=== PATIENT | female | born 1945 | race Two or more races ===

== ENCOUNTER 2018-12-16 17:10 | Inpatient (IN) | payer MEDICARE, MEDICAID ==
[~2018-12-16] VITALS: Ht 157.5 cm; Wt 51.8 kg
[~2018-12-16 17:10] MED LIST: AMLO10TA PO; ASPI81TA52 PO; ATOR80TA PO; CALC668T PO; DOCU100C41 PO; FA/V1TAB5 PO
[2018-12-16 17:57] LABS: EOSINOPHILS # (AUTO) 0.1 X10'3 (0-0.9); HEMOGLOBIN 9.5 g/dl (12.0-16.0); MEAN CORPUSCULAR HEMOGLOBIN 24.9 PG (27.0-31.0); MONOCYTES # (AUTO) 1.3 X10'3 (0-0.9); NEUTROPHILS # (AUTO) 8.6 X10'3 (1.8-7.7); WHITE BLOOD COUNT 11.2 X10'3 (4.5-11.0)
[2018-12-16 17:59] LABS: BASOPHILS % (AUTO) 0.4 % (0-1); HEMATOCRIT 28.6 % (35.0-45.0); LYMPHOCYTES # (AUTO) 1.2 X10'3 (1.1-4.8); LYMPHOCYTES % (AUTO) 10.3 % (21-51); MEAN CORPUSCULAR HGB CONC 33.1 g/dL (33.0-36.5); MEAN CORPUSCULAR VOLUME 75.3 FL (78-98); MEAN PLATELET VOLUME 9.3 FL (7.4-10.4); MONOCYTES % (AUTO) 11.3 % (2-12); PLATELET COUNT 94 X10'3 (140-440)
[2018-12-16 18:12] LABS: ALANINE AMINOTRANSFERASE 371 U/L (12-78); ALBUMIN 2.4 G/DL (3.4-5.0); ALBUMIN/GLOBULIN RATIO 0.4 (1.1-1.5); ALKALINE PHOSPHATASE 901 IU/L (46-116); ANION GAP 8 (8-16); ASPARTATE AMINO TRANSFERASE 769 U/L (10-37); BILIRUBIN,TOTAL 2.7 MG/DL (0.1-1.0); BLOOD UREA NITROGEN 47 MG/DL (7-18); BUN/CREATININE RATIO 8.4 (6.6-38.0); CALCIUM 8.9 MG/DL (8.5-10.1); CHLORIDE 95 MMOL/L (99-107); CREATININE 5.57 MG/DL (0.40-0.90); GLUCOSE 62 MG/DL (70-104); POTASSIUM 3.6 MMOL/L (3.5-5.1); SODIUM 133 MMOL/L (135-145); TOTAL CARBON DIOXIDE 29.7 MMOL/L (24-32); TOTAL PROTEIN 8.2 G/DL (6.4-8.2); eGFR 8 ML/MIN
[2018-12-16 18:14] LABS: PARTIAL THROMBOPLASTIN TIME 36 SECONDS (22-32)
[2018-12-16 18:18] LABS: MAGNESIUM 2.4 MG/DL (1.5-2.4); PHOSPHORUS 3.4 MG/DL (2.3-4.5); TROPONIN I 0.13 NG/ML (0.0-0.05)
[2018-12-16 18:23] LABS: ANISOCYTOSIS 3+; LARGE PLATELETS FEW; MICROCYTOSIS 1+; PLATELET ESTIMATE DECREASED; TARGET CELLS 1+
[2018-12-16 18:24] LABS: POIKILOCYTOSIS FEW; POLYCHROMASIA FEW
--- NOTE | 2018-12-16 19:31 | NUR ---
UNABLE TO OBTAIN URINE VIA STRAIGHT CATH.
[2018-12-16] MEDS ORDERED: ondansetron/PF 4mg/2ml inj IV PRN (21:00)
[2018-12-16 21:19] LABS: LIPASE 1245 U/L (73-393)
[2018-12-16 21:25] LABS: CREATINE KINASE 24410 U/L (26-192)
[2018-12-16 23:30] VITALS: BP 96/78
--- NOTE | 2018-12-17 00:15 | NUR ---
2250 RC'D VERBAL REPORT FROM ED RN, SAULO AND ASSUMED CARE OF PATIENT WHEN SHE ARRIVED VIA [facility] AT 2325. PATIENT TRANSFERRED INTO SURGICAL BED FROM [facility] AND 2 RN SKIN CHECK COMPLETED. PATIENT NON [place] ISLANDER SPEAKING, BUT ABLE TO COMMUNICATE SOMEWHAT THROUGH GESTURES. FISTULA IN CORA CHECKED, GOOD THRILL AND BRUIT. 20G IN LFA INTACT. CALL LIGHT IN REACH.
[2018-12-17 02:12] LABS: BASOPHILS % (AUTO) 0.2 % (0-1); EOSINOPHILS # (AUTO) 0.2 X10'3 (0-0.9); HEMATOCRIT 30.3 % (35.0-45.0); HEMOGLOBIN 10.2 g/dl (12.0-16.0); RED CELL DISTRIBUTION WIDTH 21.6 % (11.5-14.5)
[2018-12-17 02:13] LABS: EOSINOPHILS % (AUTO) 1.8 % (0-6); LYMPHOCYTES # (AUTO) 1.3 X10'3 (1.1-4.8); LYMPHOCYTES % (AUTO) 14.5 % (21-51); MEAN CORPUSCULAR HEMOGLOBIN 25.3 PG (27.0-31.0); MEAN CORPUSCULAR HGB CONC 33.5 g/dL (33.0-36.5); MEAN CORPUSCULAR VOLUME 75.3 FL (78-98); MEAN PLATELET VOLUME 9.8 FL (7.4-10.4); MONOCYTES % (AUTO) 10.6 % (2-12); NEUTROPHILS # (AUTO) 6.6 X10'3 (1.8-7.7); NEUTROPHILS % (AUTO) 72.9 % (42-75); PLATELET COUNT 69 X10'3 (140-440); RED BLOOD COUNT 4.02 X10'6 (4.20-5.60)
--- NOTE | 2018-12-17 05:57 | NUR ---
Problems reprioritized. Patient report given, questions answered & plan of care reviewed with STEPHEN BLISS.
[2018-12-17 06:18] LABS: ALBUMIN 2.3 G/DL (3.4-5.0); ANION GAP 9 (8-16); BLOOD UREA NITROGEN 51 MG/DL (7-18); BUN/CREATININE RATIO 8.1 (6.6-38.0); CALCIUM 9.1 MG/DL (8.5-10.1); CHLORIDE 93 MMOL/L (99-107); CREATININE 6.32 MG/DL (0.40-0.90); GLUCOSE 97 MG/DL (70-104); MAGNESIUM 2.4 MG/DL (1.5-2.4); PHOSPHORUS 4.1 MG/DL (2.3-4.5); SODIUM 131 MMOL/L (135-145); TOTAL CARBON DIOXIDE 28.8 MMOL/L (24-32); eGFR 7 ML/MIN
--- NOTE | 2018-12-17 06:28 | NUR ---
Patient in room DOM 340. I have received report from barbara lofton and had the opportunity to ask questions and assume patient care.
[2018-12-17 06:51] LABS: HEMOGLOBIN A1C 5.1 % (4.5-6.2)
[2018-12-17 07:00] VITALS: BP_SYST 136; BP_SYST 141; BP_DIAS 61; BP_DIAS 64
--- NOTE | 2018-12-17 07:22 | NUR ---
CALLED KIERSTEN TO SEE IF PT NEEDS TO HAVE FLUIDS FOR NPO WITH AN NA+ OF 131. PT IS CURRENTLY NPO FOR A PROCEDURE THIS MORNING
--- NOTE | 2018-12-17 10:11 | NUR ---
PHYSICAL THERAPY WORKED WITH PT. SHE AMBULATED 300 FEET WITH WALKER
[2018-12-17 11:00] VITALS: BP 136/64
--- NOTE | 2018-12-17 17:58 | NUR ---
Problems reprioritized. Patient report given, questions answered & plan of care reviewed with LORETTA BLISS.
[2018-12-18] VITALS: BP 130/58
[2018-12-18] MEDS: acetaminophen 325mg tablet PO PRN (02:15)
[2018-12-18 05:20] LABS: EOSINOPHILS # (AUTO) 0.1 X10'3 (0-0.9); LYMPHOCYTES # (AUTO) 1.2 X10'3 (1.1-4.8); NEUTROPHILS % (AUTO) 74.4 % (42-75); RED CELL DISTRIBUTION WIDTH 22.2 % (11.5-14.5); WHITE BLOOD COUNT 9.6 X10'3 (4.5-11.0)
[2018-12-18 05:23] LABS: BASOPHILS % (AUTO) 0.3 % (0-1); EOSINOPHILS % (AUTO) 1.1 % (0-6); HEMATOCRIT 26.1 % (35.0-45.0); HEMOGLOBIN 8.9 g/dl (12.0-16.0); LYMPHOCYTES % (AUTO) 12.9 % (21-51); MEAN CORPUSCULAR HEMOGLOBIN 25.4 PG (27.0-31.0); MEAN CORPUSCULAR VOLUME 74.7 FL (78-98); MEAN PLATELET VOLUME 10.2 FL (7.4-10.4); MONOCYTES # (AUTO) 1.1 X10'3 (0-0.9); MONOCYTES % (AUTO) 11.3 % (2-12); NEUTROPHILS # (AUTO) 7.1 X10'3 (1.8-7.7); PLATELET COUNT 97 X10'3 (140-440); RED BLOOD COUNT 3.49 X10'6 (4.20-5.60)
[2018-12-18 05:27] LABS: ANION GAP 9 (8-16); BLOOD UREA NITROGEN 72 MG/DL (7-18); BUN/CREATININE RATIO 9.3 (6.6-38.0); CALCIUM 8.3 MG/DL (8.5-10.1); CHLORIDE 94 MMOL/L (99-107); CREATININE 7.78 MG/DL (0.40-0.90); GLUCOSE 172 MG/DL (70-104); MAGNESIUM 2.8 MG/DL (1.5-2.4); PHOSPHORUS 5.1 MG/DL (2.3-4.5); POTASSIUM 4.8 MMOL/L (3.5-5.1); SODIUM 129 MMOL/L (135-145); TOTAL CARBON DIOXIDE 26.3 MMOL/L (24-32); eGFR 5 ML/MIN
--- NOTE | 2018-12-18 06:25 | NUR ---
Problems reprioritized. Patient report given, questions answered & plan of care reviewed with FIDEL. Addendum: 12/18/18 at 0625 by Alexsander Miramontes RN Amended: Links added.
[2018-12-18 07:00] VITALS: BP 132/56
[2018-12-18] MEDS ORDERED: normal saline 1000ml 250 ML IV PRN (08:00)
[2018-12-18] MEDS ORDERED: heparin 1,000 units/ml 10ml inj IV ONE ×2 (08:00→15:05)
[2018-12-18] MEDS ORDERED: epoetin 20,000 units/ml inj IV ONE ×2 (08:00→15:05)
[2018-12-18] MEDS ORDERED: LIDOcaine 1% (10mg/ml) 2ml vial SQ ONE (08:00)
[2018-12-18 11:30] VITALS: BP 137/57
[2018-12-18] MEDS ORDERED: INSU100V13 SQ (13:40)
--- NOTE | 2018-12-18 14:41 | NUR ---
Malnutrition consult: Pt admit w/ generalized weakness and decreased appetite past week. CT reveals biliary tree dilation, gallstones, obstructive jaundice, and possible malignancy per MD note. Pt AOx2, Estonian but daughter who is caregiver present at bedside to translate. Daughter reports general decline past month but mainly past week very little PO and complains of teeth not strong as they used to be as well as dysgeusia resulting in bitter/no taste. Pt hx ESRD on HD as well and daughter reports tried ensures for ONS but caused pt diarrhea. Lipase is currently elevated 1245 and on renal diet w/ PO increasing to 100% today so will hold off on ONS at this time given high fat renal ONS w/ current GI issues. Daughter reports UBW 115# last week; currently 110# % UBW loss significant but unsure if true wt loss vs fluid given on HD MWF. At this time pt has no edema/wounds, eating well, no significant weakness noted, and lacks minimum [address] d/w daughter who agrees pt would benefit from soft to chew foods and chopped meats; ELAN d/w dietary. Will monitor for additional criteria and ONS needs this admit. Rec: 1. continue renal diet; soft to chew foods/chopped meats 2. monitor for ONS needs 3. wt w/ HD Addendum: 12/18/18 at [address] Amended: Links added.
[2018-12-18] MEDS ORDERED: heparin 1,000unit/ml 10ml vial 10 ML IV ONE (15:04)
[2018-12-18] MEDS ORDERED: albumin (Human) 5% 250ml 250 ML IV PRN (15:05)
[2018-12-18] MEDS ORDERED: sincalide inj 1 MCG in normal saline 50ml IV soln 50 ML IV ONE (15:05)
[2018-12-18 18:50] VITALS: BP 129/53
[2018-12-19] VITALS: BP 133/62
[2018-12-19] MEDS: acetaminophen 325mg tablet PO PRN (03:32)
[2018-12-19 05:00] LABS: EOSINOPHILS # (AUTO) 0.1 X10'3 (0-0.9); HEMOGLOBIN 8.8 g/dl (12.0-16.0); MEAN PLATELET VOLUME 11.3 FL (7.4-10.4); PLATELET COUNT 129 X10'3 (140-440); WHITE BLOOD COUNT 8.6 X10'3 (4.5-11.0)
[2018-12-19 05:03] LABS: BASOPHILS % (AUTO) 0.5 % (0-1); EOSINOPHILS % (AUTO) 1.3 % (0-6); HEMATOCRIT 25.9 % (35.0-45.0); LYMPHOCYTES # (AUTO) 1.3 X10'3 (1.1-4.8); LYMPHOCYTES % (AUTO) 15.2 % (21-51); MEAN CORPUSCULAR HEMOGLOBIN 25.4 PG (27.0-31.0); MEAN CORPUSCULAR VOLUME 74.9 FL (78-98); MONOCYTES % (AUTO) 11.8 % (2-12); NEUTROPHILS # (AUTO) 6.1 X10'3 (1.8-7.7); NEUTROPHILS % (AUTO) 71.2 % (42-75); RED BLOOD COUNT 3.46 X10'6 (4.20-5.60); RED CELL DISTRIBUTION WIDTH 22.1 % (11.5-14.5)
[2018-12-19 05:13] LABS: ANION GAP 6 (8-16); BLOOD UREA NITROGEN 28 MG/DL (7-18); BUN/CREATININE RATIO 6.9 (6.6-38.0); CALCIUM 8.6 MG/DL (8.5-10.1); CHLORIDE 99 MMOL/L (99-107); CREATININE 4.06 MG/DL (0.40-0.90); GLUCOSE 86 MG/DL (70-104); MAGNESIUM 2.1 MG/DL (1.5-2.4); PHOSPHORUS 3.1 MG/DL (2.3-4.5); POTASSIUM 3.9 MMOL/L (3.5-5.1); SODIUM 135 MMOL/L (135-145); TOTAL CARBON DIOXIDE 29.9 MMOL/L (24-32); eGFR 11 ML/MIN
--- NOTE | 2018-12-19 05:39 | NUR ---
Problems reprioritized. Patient report given, questions answered & plan of care reviewed with FIDEL. Addendum: 12/19/18 at 0540 by Alexsander Miramontes RN Amended: Links added.
[2018-12-19 06:49] LABS: ANISOCYTOSIS 3+; MICROCYTOSIS 1+; PLATELET ESTIMATE DECREASED
[2018-12-19 06:52] LABS: TARGET CELLS 2+
[2018-12-19 06:54] LABS: HYPOCHROMASIA 1+
[2018-12-19] MEDS: insulin Lispro (HumaLOG) vial - multi-dose SQ SCH ×2 (13:00→17:00)
[2018-12-19] MEDS: calcium acetate 667mg (PhosLO) capsule PO SCH ×2 (13:00→18:00)
[2018-12-19 13:13] LABS: AFP,SERUM, TUMOR MARKER 1.8 ng/mL (0.0-8.3)
--- NOTE | 2018-12-19 18:10 | NUR ---
Patient in room DOM 340B, resting comfortably in no apparent distress. I have received report from Magui BLISS and had the opportunity to ask questions and assume patient care. Will continue to monitor.
[2018-12-19] MEDS: atorvastatin 20mg tablet PO SCH (19:44)
[2018-12-19 20:00] VITALS: BP 141/54
[2018-12-19] MEDS: piperacillin/tazo 3.375gm/50ml 50 ML IV SCH (23:29)
[2018-12-19] MEDS: dextrose 5%-normal saline 1,000 ML IV SCH (23:30)
[2018-12-20] VITALS: BP 138/53
[2018-12-20 04:41] VITALS: BP 138/53
[2018-12-20 04:52] LABS: BASOPHILS % (AUTO) 0.4 % (0-1); EOSINOPHILS # (AUTO) 0.2 X10'3 (0-0.9); EOSINOPHILS % (AUTO) 1.4 % (0-6); HEMATOCRIT 29.3 % (35.0-45.0); HEMOGLOBIN 9.5 g/dl (12.0-16.0); LYMPHOCYTES # (AUTO) 1.5 X10'3 (1.1-4.8); LYMPHOCYTES % (AUTO) 13.5 % (21-51); MEAN CORPUSCULAR HEMOGLOBIN 24.7 PG (27.0-31.0); MEAN CORPUSCULAR HGB CONC 32.5 g/dL (33.0-36.5); MEAN PLATELET VOLUME 10.6 FL (7.4-10.4); MONOCYTES % (AUTO) 8.7 % (2-12); NEUTROPHILS # (AUTO) 8.4 X10'3 (1.8-7.7); PLATELET COUNT 134 X10'3 (140-440); RED BLOOD COUNT 3.85 X10'6 (4.20-5.60); RED CELL DISTRIBUTION WIDTH 22.2 % (11.5-14.5); WHITE BLOOD COUNT 11.1 X10'3 (4.5-11.0)
[2018-12-20 05:00] LABS: ALBUMIN 2.1 G/DL (3.4-5.0); ANION GAP 9 (8-16); BLOOD UREA NITROGEN 46 MG/DL (7-18); BUN/CREATININE RATIO 7.5 (6.6-38.0); CALCIUM 9.1 MG/DL (8.5-10.1); CHLORIDE 98 MMOL/L (99-107); CREATININE 6.14 MG/DL (0.40-0.90); GLUCOSE 88 MG/DL (70-104); MAGNESIUM 2.4 MG/DL (1.5-2.4); PHOSPHORUS 5.3 MG/DL (2.3-4.5); SODIUM 135 MMOL/L (135-145); TOTAL CARBON DIOXIDE 28.2 MMOL/L (24-32); eGFR 7 ML/MIN
[2018-12-20 05:01] LABS: POTASSIUM 4.6 MMOL/L (3.5-5.1)
--- NOTE | 2018-12-20 06:20 | NUR ---
I have reviewed and agree with all interventions, assessments performed and documented by RUTHY Madrid. Problems reprioritized. Patient report given, questions answered & plan of care reviewed with RUTHY Tirado.
[2018-12-20 07:00] VITALS: BP 145/54
[2018-12-20] MEDS: insulin Lispro (HumaLOG) vial - multi-dose SQ SCH ×3 (07:00→17:00)
[2018-12-20 07:14] LABS: ANISOCYTOSIS 3+; MICROCYTOSIS 1+; PLATELET ESTIMATE DECREASED; TARGET CELLS 2+
[2018-12-20 07:15] LABS: HYPOCHROMASIA 1+
[2018-12-20] MEDS: calcium acetate 667mg (PhosLO) capsule PO SCH ×3 (08:00→17:33)
[2018-12-20] MEDS ORDERED: aspirin 81mg tablet.DR PO SCH (08:00)
[2018-12-20] MEDS: amLODIPine 5mg tablet PO SCH (08:14)
[2018-12-20] MEDS: docusate sod 100mg capsule PO SCH (08:14)
[2018-12-20] MEDS: piperacillin/tazo 3.375gm/50ml 50 ML IV SCH ×2 (08:15→17:14)
[2018-12-20] MEDS: folic acid/vitamin B complex w/vitamin C 0.8mg tablet PO SCH (08:15)
[2018-12-20 08:20] LABS: PRE OP INR 1.1 INR; PRE OP PROTIME 10.7 SECONDS (9.0-12.0)
[2018-12-20] MEDS ORDERED: epoetin 20,000 units/ml inj IV ONE (08:55)
[2018-12-20] MEDS ORDERED: albumin (Human) 5% 250ml 250 ML IV PRN (08:55)
[2018-12-20] MEDS ORDERED: LIDOcaine 1% (10mg/ml) 2ml vial SQ ONE (10:05)
[2018-12-20 11:00] VITALS: BP 140/65
--- NOTE | 2018-12-20 12:44 | NUR ---
Per Dr Kim Hold insulin until patient is eating again then restart as ordered.
[2018-12-20] MEDS: dextrose 5%-normal saline 1,000 ML IV SCH (17:05)
--- NOTE | 2018-12-20 17:30 | NUR ---
Jocelyne constantino/ GI lab called back stated Dr Hammonds stated procedure for ERCP tomorrow./
--- NOTE | 2018-12-20 18:05 | NUR ---
Patient in room DOM 340B. I have received report from RUTHY Tirado and had the opportunity to ask questions and assume patient care. pt resting comfortably in bed, in no apparent distress. will continue to monitor
--- NOTE | 2018-12-20 19:10 | NUR ---
Problems reprioritized. Patient report given, questions answered & plan of care reviewed with Ezequiel BLISS and Uma BLISS.
[2018-12-20 20:00] VITALS: BP 120/49
[2018-12-20] MEDS: atorvastatin 20mg tablet PO SCH (21:00)
[2018-12-21] VITALS (16 sets, daily range): BP systolic 103–146; BP diastolic 40–74
[2018-12-21] MEDS ORDERED: morphine 4 MG/ML inj SYRINge IV PRN (01:10)
[2018-12-21 04:40] LABS: BASOPHILS # (AUTO) 0.1 X10'3 (0-0.2); BASOPHILS % (AUTO) 0.7 % (0-1); EOSINOPHILS # (AUTO) 0.1 X10'3 (0-0.9); EOSINOPHILS % (AUTO) 0.8 % (0-6); HEMOGLOBIN 8.9 g/dl (12.0-16.0); LYMPHOCYTES # (AUTO) 1.7 X10'3 (1.1-4.8); LYMPHOCYTES % (AUTO) 15.1 % (21-51); MEAN CORPUSCULAR HEMOGLOBIN 25.1 PG (27.0-31.0); MEAN CORPUSCULAR HGB CONC 32.8 g/dL (33.0-36.5); MEAN CORPUSCULAR VOLUME 76.4 FL (78-98); MEAN PLATELET VOLUME 9.6 FL (7.4-10.4); MONOCYTES # (AUTO) 0.9 X10'3 (0-0.9); MONOCYTES % (AUTO) 8.2 % (2-12); NEUTROPHILS # (AUTO) 8.7 X10'3 (1.8-7.7); NEUTROPHILS % (AUTO) 75.2 % (42-75); PLATELET COUNT 159 X10'3 (140-440); RED BLOOD COUNT 3.54 X10'6 (4.20-5.60); RED CELL DISTRIBUTION WIDTH 22.6 % (11.5-14.5); WHITE BLOOD COUNT 11.6 X10'3 (4.5-11.0)
[2018-12-21 04:47] LABS: ANION GAP 11 (8-16); BLOOD UREA NITROGEN 29 MG/DL (7-18); BUN/CREATININE RATIO 6.7 (6.6-38.0); CHLORIDE 101 MMOL/L (99-107); CREATININE 4.34 MG/DL (0.40-0.90); GLUCOSE 117 MG/DL (70-104); PHOSPHORUS 5.1 MG/DL (2.3-4.5); SODIUM 139 MMOL/L (135-145); TOTAL CARBON DIOXIDE 27.4 MMOL/L (24-32); eGFR 10 ML/MIN
[2018-12-21 04:48] LABS: ALANINE AMINOTRANSFERASE 427 U/L (12-78); ALBUMIN/GLOBULIN RATIO 0.3 (1.1-1.5); ALKALINE PHOSPHATASE 749 IU/L (46-116); ASPARTATE AMINO TRANSFERASE 694 U/L (10-37); BILIRUBIN,TOTAL 2.5 MG/DL (0.1-1.0); MAGNESIUM 2.2 MG/DL (1.5-2.4)
--- NOTE | 2018-12-21 06:48 | NUR ---
Patient in room DOM 340. I have received report from Uma BLISS and Ezequiel BLISS and had the opportunity to ask questions and assume patient care.
[2018-12-21] MEDS: insulin Lispro (HumaLOG) vial - multi-dose SQ SCH ×3 (07:00→17:00)
[2018-12-21] MEDS: piperacillin/tazo 3.375gm/50ml 50 ML IV SCH ×2 (07:08→20:05)
[2018-12-21] MEDS: dextrose 5%-normal saline 1,000 ML IV SCH (07:12)
[2018-12-21] MEDS: calcium acetate 667mg (PhosLO) capsule PO SCH ×3 (07:16→17:13)
[2018-12-21 07:39] LABS: ANISOCYTOSIS 3+; MICROCYTOSIS 1+
[2018-12-21 07:40] LABS: HYPOCHROMASIA 1+; POLYCHROMASIA 1+
[2018-12-21 07:47] LABS: TARGET CELLS 2+
[2018-12-21 07:48] LABS: PLATELET ESTIMATE DECREASED
[2018-12-21] MEDS: docusate sod 100mg capsule PO SCH (08:00)
[2018-12-21] MEDS: amLODIPine 5mg tablet PO SCH (08:00)
[2018-12-21] MEDS: folic acid/vitamin B complex w/vitamin C 0.8mg tablet PO SCH (08:00)
[2018-12-21] MEDS ORDERED: fentaNYL/PF 50MCG/1 ML 2ML syringe ONE (12:46)
[2018-12-21] MEDS ORDERED: MIDAZolam 5mg/5ml vial ONE (12:47)
[2018-12-21] MEDS ORDERED: LIDOcaine Viscous 15ml cup ONE (12:47)
[2018-12-21] MEDS ORDERED: diphenhydrAMINE 50 mg/ml inj ONE (12:47)
[2018-12-21] MEDS ORDERED: iohexol 300 MG/1 ML 50ml polymer ONE (12:48)
[2018-12-21] MEDS ORDERED: glucagon, human recombinant 1mg kit ONE (12:48)
--- NOTE | 2018-12-21 15:40 | NUR ---
Reassessment: Pt NPO day 4 s/p lap cholecystectomy, MRCP, and pending ERCP results from today per MD note. Pt Previously tolerating PO w/ 100% meals meeting needs. LBM 12/19. If pt continuous to be NPO will need alternative nutrition likely post-pyloric feedings given gut intact and concern for pancreatic malignancy. Given 4 days NPO, mild weakness, and mild wt loss hx prior to admit in addition to catabolic needs on HD w/ possible pancreatic CA pt qualifies for severe malnutrition; MD notified. Will continue to monitor. Rec: 1. advance to renal diet; soft to chew foods/chopped meats 2. Nepro TIDWM once PO 3. wt w/ HD Addendum: 12/21/18 at [address] Amended: Links added.
--- NOTE | 2018-12-21 17:13 | NUR ---
Patient still not in her room, I called GI lab, spoke to the staff who told me that they just started the ERCP procedure and will not to have patient recover first before bringing back to her room. Addendum: 12/21/18 at 1731 by Amy Pulido RN I let the GI lab nurse know when I spoke to her that blood sugar need to be check at 17:00. She said it will be recheck at the recovery
--- NOTE | 2018-12-21 18:42 | NUR ---
Problems reprioritized. Patient report given, questions answered & plan of care reviewed with Michael BLISS.
--- NOTE | 2018-12-21 18:43 | NUR ---
Patient in room DOM 340. I have received report from RUTHY Reyes and had the opportunity to ask questions and assume patient care.
[2018-12-21] MEDS: atorvastatin 20mg tablet PO SCH (20:04)
[2018-12-22 00:21] VITALS: BP 131/49
[2018-12-22 04:53] LABS: BASOPHILS % (AUTO) 0.2 % (0-1); EOSINOPHILS # (AUTO) 0.2 X10'3 (0-0.9); EOSINOPHILS % (AUTO) 1.9 % (0-6); HEMATOCRIT 28.5 % (35.0-45.0); HEMOGLOBIN 9.2 g/dl (12.0-16.0); LYMPHOCYTES # (AUTO) 1.5 X10'3 (1.1-4.8); MEAN CORPUSCULAR HEMOGLOBIN 25.2 PG (27.0-31.0); MEAN CORPUSCULAR HGB CONC 32.3 g/dL (33.0-36.5); MEAN CORPUSCULAR VOLUME 77.9 FL (78-98); MEAN PLATELET VOLUME 10.3 FL (7.4-10.4); MONOCYTES # (AUTO) 0.8 X10'3 (0-0.9); MONOCYTES % (AUTO) 7.1 % (2-12); NEUTROPHILS # (AUTO) 8.8 X10'3 (1.8-7.7); NEUTROPHILS % (AUTO) 77.8 % (42-75); PLATELET COUNT 182 X10'3 (140-440); RED BLOOD COUNT 3.66 X10'6 (4.20-5.60); RED CELL DISTRIBUTION WIDTH 22.5 % (11.5-14.5); WHITE BLOOD COUNT 11.3 X10'3 (4.5-11.0)
[2018-12-22 05:09] LABS: ALANINE AMINOTRANSFERASE 435 U/L (12-78); ALBUMIN 1.9 G/DL (3.4-5.0); ALBUMIN/GLOBULIN RATIO 0.3 (1.1-1.5); ALKALINE PHOSPHATASE 632 IU/L (46-116); ANION GAP 12 (8-16); ASPARTATE AMINO TRANSFERASE 732 U/L (10-37); BILIRUBIN,TOTAL 2.2 MG/DL (0.1-1.0); BLOOD UREA NITROGEN 50 MG/DL (7-18); BUN/CREATININE RATIO 8.4 (6.6-38.0); CALCIUM 8.5 MG/DL (8.5-10.1); CHLORIDE 101 MMOL/L (99-107); CREATININE 5.98 MG/DL (0.40-0.90); GLUCOSE 136 MG/DL (70-104); LIPASE 755 U/L (73-393); POTASSIUM 4.4 MMOL/L (3.5-5.1); SODIUM 138 MMOL/L (135-145); TOTAL CARBON DIOXIDE 25.5 MMOL/L (24-32); TOTAL PROTEIN 7.6 G/DL (6.4-8.2); eGFR 7 ML/MIN
--- NOTE | 2018-12-22 06:10 | NUR ---
Problems reprioritized. Patient report given, questions answered & plan of care reviewed with RUTHY Reyes.
--- NOTE | 2018-12-22 06:18 | NUR ---
Patient in room DOM 340. I have received report from Michael BLISS and had the opportunity to ask questions and assume patient care.
[2018-12-22 06:29] LABS: ANISOCYTOSIS 3+; MICROCYTOSIS 1+; PLATELET ESTIMATE NORMAL; POIKILOCYTOSIS FEW; POLYCHROMASIA FEW; TARGET CELLS 1+
[2018-12-22] MEDS: insulin Lispro (HumaLOG) vial - multi-dose SQ SCH ×3 (06:45→18:44)
[2018-12-22] MEDS: amLODIPine 5mg tablet PO SCH (06:47)
[2018-12-22 07:00] VITALS: BP 123/55
[2018-12-22] MEDS: folic acid/vitamin B complex w/vitamin C 0.8mg tablet PO SCH ×3 (07:53→08:34)
[2018-12-22] MEDS: docusate sod 100mg capsule PO SCH ×3 (07:53→08:33)
[2018-12-22] MEDS: calcium acetate 667mg (PhosLO) capsule PO SCH ×4 (07:53→18:41)
[2018-12-22] MEDS: piperacillin/tazo 3.375gm/50ml 50 ML IV SCH ×2 (07:53→21:00)
[2018-12-22] MEDS ORDERED: normal saline 1000ml 250 ML IV PRN (08:00)
[2018-12-22] MEDS ORDERED: heparin 1,000 units/ml 10ml inj HE ONE ×2 (08:00)
[2018-12-22] MEDS ORDERED: LIDOcaine 1% (10mg/ml) 2ml vial SQ ONE (08:00)
[2018-12-22] MEDS ORDERED: epoetin 20,000 units/ml inj IV ONE (08:00)
[2018-12-22] MEDS ORDERED: heparin 1,000unit/ml 10ml vial 10 ML IV ONE (08:00)
[2018-12-22] MEDS: dextrose 5%-normal saline 1,000 ML IV SCH (09:05)
--- NOTE | 2018-12-22 10:19 | NUR ---
Dialysis nurse at bedside
[2018-12-22 11:00] VITALS: BP 129/59
[2018-12-22 18:00] VITALS: BP 106/59
--- NOTE | 2018-12-22 18:43 | NUR ---
Problems reprioritized. Patient report given, questions answered & plan of care reviewed with Michael BLISS.
--- NOTE | 2018-12-22 18:44 | NUR ---
Patient in room DOM 340. I have received report from RUTHY Reyes and had the opportunity to ask questions and assume patient care.
[2018-12-22] MEDS: atorvastatin 20mg tablet PO SCH (21:00)
[2018-12-22] MEDS: lactobacillus rhamnosus 10,000 MMU CELLS/CAPSULE PO SCH (21:00)
[2018-12-23 00:13] VITALS: BP 117/43
[2018-12-23] MEDS: dextrose 5%-normal saline 1,000 ML IV SCH (03:50)
--- NOTE | 2018-12-23 06:15 | NUR ---
Problems reprioritized. Patient report given, questions answered & plan of care reviewed with RUTHY Franco.
--- NOTE | 2018-12-23 06:39 | NUR ---
Patient in room DOM 340. I have received report from RUTHY BORDEN and had the opportunity to ask questions and assume patient care. Addendum: 12/23/18 at 0650 by Joan Albarran RN Patient in room DOM 340. I have received report from RUTHY KAMARA AND RUTHY LOZADA and had the opportunity to ask questions and assume patient care.
[2018-12-23 07:00] VITALS: BP 118/41
[2018-12-23] MEDS: amLODIPine 5mg tablet PO SCH (07:34)
[2018-12-23] MEDS: piperacillin/tazo 3.375gm/50ml 50 ML IV SCH ×2 (07:34→19:12)
[2018-12-23] MEDS: docusate sod 100mg capsule PO SCH (07:34)
[2018-12-23] MEDS: lactobacillus rhamnosus 10,000 MMU CELLS/CAPSULE PO SCH ×2 (07:34→19:12)
[2018-12-23] MEDS: calcium acetate 667mg (PhosLO) capsule PO SCH ×3 (07:34→18:51)
[2018-12-23] MEDS: folic acid/vitamin B complex w/vitamin C 0.8mg tablet PO SCH (07:34)
[2018-12-23] MEDS: insulin Lispro (HumaLOG) vial - multi-dose SQ SCH ×3 (08:43→18:57)
[2018-12-23 12:07] VITALS: BP 118/43
[2018-12-23] MEDS: NUT.TX.IMP.RENAL FXN,LAC-REDUC (Nepro) 237 ML VANILLA PO SCH ×2 (12:53→18:51)
[2018-12-23 18:00] VITALS: BP 114/79
--- NOTE | 2018-12-23 18:49 | NUR ---
Problems reprioritized. Patient report given, questions answered & plan of care reviewed with kirsty bolanos.
--- NOTE | 2018-12-23 18:50 | NUR ---
Patient in room DOM 340. I have received report from RUTHY Franco and had the opportunity to ask questions and assume patient care.
[2018-12-23] MEDS: diatr meglu/diatrizoate 30ml oral sol.-(3 dose) bottle PO SCH (20:57)
[2018-12-23] MEDS: atorvastatin 20mg tablet PO SCH (20:59)
[2018-12-24] VITALS: BP 116/42
[2018-12-24] MEDS: dextrose 5%-normal saline 1,000 ML IV SCH ×2 (03:34→21:05)
[2018-12-24 05:53] LABS: BLOOD UREA NITROGEN 46 MG/DL (7-18); eGFR 8 ML/MIN
--- NOTE | 2018-12-24 06:22 | NUR ---
Problems reprioritized. Patient report given, questions answered & plan of care reviewed with RUTHY Wu.
--- NOTE | 2018-12-24 06:30 | NUR ---
Patient in room DOM 340. I have received report from cici BLISS and had the opportunity to ask questions and assume patient care.
[2018-12-24] MEDS: insulin Lispro (HumaLOG) vial - multi-dose SQ SCH ×3 (07:00→19:42)
[2018-12-24] MEDS: folic acid/vitamin B complex w/vitamin C 0.8mg tablet PO SCH ×2 (08:00→08:48)
[2018-12-24] MEDS: NUT.TX.IMP.RENAL FXN,LAC-REDUC (Nepro) 237 ML VANILLA PO SCH ×3 (08:00→18:00)
[2018-12-24] MEDS: calcium acetate 667mg (PhosLO) capsule PO SCH ×3 (08:00→19:38)
[2018-12-24] MEDS: docusate sod 100mg capsule PO SCH (08:48)
[2018-12-24] MEDS: diatr meglu/diatrizoate 30ml oral sol.-(3 dose) bottle PO SCH ×2 (08:48→10:37)
[2018-12-24] MEDS: piperacillin/tazo 3.375gm/50ml 50 ML IV SCH ×2 (08:48→19:47)
[2018-12-24] MEDS: amLODIPine 5mg tablet PO SCH (08:48)
[2018-12-24] MEDS: lactobacillus rhamnosus 10,000 MMU CELLS/CAPSULE PO SCH ×2 (08:48→19:48)
[2018-12-24] MEDS ORDERED: iohexol 300mg/ml 100ml inj. ONE (10:38)
[2018-12-24 11:00] VITALS: BP_SYST 113; BP_SYST 121; BP_DIAS 68; BP_DIAS 79
--- NOTE | 2018-12-24 12:05 | NUR ---
reassessment: Pt PO 50% renal diet soft to chew foods/chopped meats w/ 100% Nepro meeting needs. LBM 12/22. Currently pending CT for bile duct dilation and stones and hepatic stone obstruction w/o GB ductal obstruction per MD note. Will continue to monitor. Rec: 1. continue renal diet; soft to chew foods/chopped meats 2. Nepro TIDWM once PO 3. wt w/ HD Addendum: 12/24/18 at [address] Amended: Links added.
[2018-12-24 18:30] VITALS: BP 126/55
--- NOTE | 2018-12-24 18:30 | NUR ---
Problems reprioritized. Patient report given, questions answered & plan of care reviewed with Wilmer BLISS.
[2018-12-24] MEDS: atorvastatin 20mg tablet PO SCH (21:17)
[2018-12-25] VITALS: BP 120/48
[2018-12-25 05:09] LABS: BASOPHILS % (AUTO) 0.2 % (0-1); EOSINOPHILS # (AUTO) 0.2 X10'3 (0-0.9); EOSINOPHILS % (AUTO) 2.1 % (0-6); HEMATOCRIT 24.2 % (35.0-45.0); LYMPHOCYTES # (AUTO) 1.1 X10'3 (1.1-4.8); LYMPHOCYTES % (AUTO) 9.3 % (21-51); MEAN CORPUSCULAR HEMOGLOBIN 25.5 PG (27.0-31.0); MEAN CORPUSCULAR VOLUME 77.2 FL (78-98); MEAN PLATELET VOLUME 9.6 FL (7.4-10.4); MONOCYTES # (AUTO) 0.9 X10'3 (0-0.9); MONOCYTES % (AUTO) 8.3 % (2-12); NEUTROPHILS # (AUTO) 9.1 X10'3 (1.8-7.7); NEUTROPHILS % (AUTO) 80.1 % (42-75); PLATELET COUNT 125 X10'3 (140-440); RED BLOOD COUNT 3.13 X10'6 (4.20-5.60); RED CELL DISTRIBUTION WIDTH 23.7 % (11.5-14.5); WHITE BLOOD COUNT 11.4 X10'3 (4.5-11.0)
[2018-12-25] MEDS: dextrose 5%-normal saline 1,000 ML IV SCH (05:19)
[2018-12-25 05:31] LABS: ALANINE AMINOTRANSFERASE 413 U/L (12-78); ALBUMIN 1.5 G/DL (3.4-5.0); ALBUMIN/GLOBULIN RATIO 0.3 (1.1-1.5); ALKALINE PHOSPHATASE 714 IU/L (46-116); AMYLASE 119 U/L (25-115); ANION GAP 14 (8-16); ASPARTATE AMINO TRANSFERASE 764 U/L (10-37); BILIRUBIN,TOTAL 1.9 MG/DL (0.1-1.0); BLOOD UREA NITROGEN 63 MG/DL (7-18); BUN/CREATININE RATIO 9.2 (6.6-38.0); CALCIUM 7.9 MG/DL (8.5-10.1); CHLORIDE 95 MMOL/L (99-107); CREATININE 6.84 MG/DL (0.40-0.90); GLUCOSE 268 MG/DL (70-104); MAGNESIUM 2.4 MG/DL (1.5-2.4); PHOSPHORUS 4.5 MG/DL (2.3-4.5); POTASSIUM 4.9 MMOL/L (3.5-5.1); SODIUM 131 MMOL/L (135-145); TOTAL CARBON DIOXIDE 21.7 MMOL/L (24-32); TOTAL PROTEIN 6.7 G/DL (6.4-8.2); eGFR 6 ML/MIN
[2018-12-25 06:03] LABS: ANISOCYTOSIS 3+; MICROCYTOSIS 1+; PLATELET ESTIMATE DECREASED
[2018-12-25 06:04] LABS: HYPOCHROMASIA 1+; POLYCHROMASIA FEW; TARGET CELLS 1+
--- NOTE | 2018-12-25 06:25 | NUR ---
Patient in room DOM 340. I have received report from RUTHY Guillen and had the opportunity to ask questions and assume patient care.
--- NOTE | 2018-12-25 06:39 | NUR ---
Problems reprioritized. Patient report given, questions answered & plan of care reviewed with CAESAR. Addendum: 12/25/18 at 0639 by Alexsander Miramontes RN Amended: Links added.
[2018-12-25 07:00] VITALS: BP 143/53
[2018-12-25] MEDS ORDERED: heparin 1,000unit/ml 10ml vial 10 ML IV ONE (08:00)
[2018-12-25] MEDS ORDERED: epoetin 20,000 units/ml inj IV ONE (08:00)
[2018-12-25] MEDS: docusate sod 100mg capsule PO SCH (08:00)
[2018-12-25] MEDS ORDERED: normal saline 1000ml 250 ML IV PRN (08:00)
[2018-12-25] MEDS ORDERED: LIDOcaine 1% (10mg/ml) 2ml vial SQ ONE (08:00)
[2018-12-25] MEDS: insulin Lispro (HumaLOG) vial - multi-dose SQ SCH ×3 (08:48→19:30)
[2018-12-25] MEDS: piperacillin/tazo 3.375gm/50ml 50 ML IV SCH ×2 (08:53→20:22)
[2018-12-25] MEDS: folic acid/vitamin B complex w/vitamin C 0.8mg tablet PO SCH (08:53)
[2018-12-25] MEDS: calcium acetate 667mg (PhosLO) capsule PO SCH ×3 (08:53→19:30)
[2018-12-25] MEDS: NUT.TX.IMP.RENAL FXN,LAC-REDUC (Nepro) 237 ML VANILLA PO SCH ×3 (08:53→18:00)
[2018-12-25] MEDS: amLODIPine 5mg tablet PO SCH (08:53)
[2018-12-25] MEDS: lactobacillus rhamnosus 10,000 MMU CELLS/CAPSULE PO SCH ×2 (08:53→20:22)
[2018-12-25 11:06] VITALS: BP 118/56
--- NOTE | 2018-12-25 14:50 | NUR ---
Report received from RUTHY Tirado Addendum: 12/25/18 at 1527 by Maddi Fernandes RN Omit 2/ wrong pt
--- NOTE | 2018-12-25 14:57 | NUR ---
Pt arrived to room 346A from ED Addendum: 12/25/18 at 1527 by Maddi Fernandes RN Omit 09/09 wrong pt
--- NOTE | 2018-12-25 18:35 | NUR ---
Problems reprioritized. Patient report given, questions answered & plan of care reviewed with RUTHY Guillen.
[2018-12-25 19:00] VITALS: BP 136/55
[2018-12-25] MEDS: atorvastatin 20mg tablet PO SCH (20:22)
[2018-12-26] VITALS: BP 105/41
--- NOTE | 2018-12-26 06:05 | NUR ---
Patient in room DOM 340. I have received report from RUTHY Guillen and had the opportunity to ask questions and assume patient care.
--- NOTE | 2018-12-26 06:35 | NUR ---
Problems reprioritized. Patient report given, questions answered & plan of care reviewed with Maddi. Addendum: 12/26/18 at 0635 by Alexsander Miramontes RN Amended: Links added.
[2018-12-26 06:49] LABS: ALANINE AMINOTRANSFERASE 465 U/L (12-78); ALBUMIN 1.5 G/DL (3.4-5.0); ALBUMIN/GLOBULIN RATIO 0.3 (1.1-1.5); ALKALINE PHOSPHATASE 814 IU/L (46-116); ANION GAP 13 (8-16); ASPARTATE AMINO TRANSFERASE 831 U/L (10-37); BILIRUBIN,TOTAL 2.2 MG/DL (0.1-1.0); BLOOD UREA NITROGEN 33 MG/DL (7-18); BUN/CREATININE RATIO 7.2 (6.6-38.0); CHLORIDE 96 MMOL/L (99-107); CREATININE 4.61 MG/DL (0.40-0.90); GLUCOSE 225 MG/DL (70-104); MAGNESIUM 2.3 MG/DL (1.5-2.4); PHOSPHORUS 3.5 MG/DL (2.3-4.5); POTASSIUM 3.8 MMOL/L (3.5-5.1); SODIUM 135 MMOL/L (135-145); TOTAL CARBON DIOXIDE 25.9 MMOL/L (24-32); eGFR 9 ML/MIN
[2018-12-26 07:11] VITALS: BP 104/46
[2018-12-26 07:34] LABS: BASOPHILS # (AUTO) 0.1 X10'3 (0-0.2); BASOPHILS % (AUTO) 0.6 % (0-1); EOSINOPHILS # (AUTO) 0.2 X10'3 (0-0.9); EOSINOPHILS % (AUTO) 2.1 % (0-6); HEMATOCRIT 25.4 % (35.0-45.0); HEMOGLOBIN 8.4 g/dl (12.0-16.0); LYMPHOCYTES # (AUTO) 1.1 X10'3 (1.1-4.8); LYMPHOCYTES % (AUTO) 9.7 % (21-51); MEAN CORPUSCULAR HEMOGLOBIN 25.8 PG (27.0-31.0); MEAN CORPUSCULAR HGB CONC 33.1 g/dL (33.0-36.5); MEAN CORPUSCULAR VOLUME 77.9 FL (78-98); MEAN PLATELET VOLUME 10.4 FL (7.4-10.4); MONOCYTES % (AUTO) 8.4 % (2-12); NEUTROPHILS # (AUTO) 9.2 X10'3 (1.8-7.7); NEUTROPHILS % (AUTO) 79.2 % (42-75); PLATELET COUNT 134 X10'3 (140-440); RED BLOOD COUNT 3.26 X10'6 (4.20-5.60); RED CELL DISTRIBUTION WIDTH 24.7 % (11.5-14.5); WHITE BLOOD COUNT 11.6 X10'3 (4.5-11.0)
[2018-12-26] MEDS: piperacillin/tazo 3.375gm/50ml 50 ML IV SCH ×2 (07:50→20:34)
[2018-12-26] MEDS: calcium acetate 667mg (PhosLO) capsule PO SCH ×3 (07:51→18:00)
[2018-12-26] MEDS: lactobacillus rhamnosus 10,000 MMU CELLS/CAPSULE PO SCH ×2 (07:51→20:34)
[2018-12-26] MEDS: folic acid/vitamin B complex w/vitamin C 0.8mg tablet PO SCH (07:51)
[2018-12-26] MEDS: docusate sod 100mg capsule PO SCH (07:51)
[2018-12-26] MEDS: amLODIPine 5mg tablet PO SCH (07:52)
[2018-12-26] MEDS: insulin Lispro (HumaLOG) vial - multi-dose SQ SCH ×3 (07:55→20:50)
[2018-12-26] MEDS: NUT.TX.IMP.RENAL FXN,LAC-REDUC (Nepro) 237 ML VANILLA PO SCH ×3 (07:57→18:00)
[2018-12-26 08:08] LABS: ANISOCYTOSIS 3+; HYPOCHROMASIA 1+; MICROCYTOSIS 1+; PLATELET ESTIMATE DECREASED
[2018-12-26 08:09] LABS: POLYCHROMASIA FEW; SCHISTOCYTES FEW
[2018-12-26 11:00] VITALS: BP 122/45
--- NOTE | 2018-12-26 18:30 | NUR ---
Problems reprioritized. Patient report given, questions answered & plan of care reviewed with RUTHY Brandt.
--- NOTE | 2018-12-26 19:19 | NUR ---
Patient in room DOM 340. I have received report from RUTHY Linda and had the opportunity to ask questions and assume patient care. Addendum: 12/26/18 at 1920 by Karly Vizcaino RN Amended: Links added.
[2018-12-26 20:00] VITALS: BP 117/48
[2018-12-26] MEDS: atorvastatin 20mg tablet PO SCH (20:34)
[2018-12-27] VITALS: BP 124/50
[2018-12-27 05:10] LABS: MONOCYTES # (AUTO) 1.4 X10'3 (0-0.9)
[2018-12-27 05:12] LABS: BASOPHILS % (AUTO) 0.2 % (0-1); EOSINOPHILS # (AUTO) 0.3 X10'3 (0-0.9); HEMATOCRIT 25.2 % (35.0-45.0); HEMOGLOBIN 8.4 g/dl (12.0-16.0); MEAN CORPUSCULAR HEMOGLOBIN 25.8 PG (27.0-31.0); MEAN CORPUSCULAR HGB CONC 33.2 g/dL (33.0-36.5); MEAN CORPUSCULAR VOLUME 77.5 FL (78-98); MEAN PLATELET VOLUME 9.7 FL (7.4-10.4); MONOCYTES % (AUTO) 10.4 % (2-12); NEUTROPHILS # (AUTO) 10.4 X10'3 (1.8-7.7); NEUTROPHILS % (AUTO) 79.4 % (42-75); PLATELET COUNT 115 X10'3 (140-440); RED BLOOD COUNT 3.24 X10'6 (4.20-5.60); RED CELL DISTRIBUTION WIDTH 25.9 % (11.5-14.5); WHITE BLOOD COUNT 13.1 X10'3 (4.5-11.0)
[2018-12-27 05:37] LABS: ALANINE AMINOTRANSFERASE 463 U/L (12-78); ALBUMIN 1.4 G/DL (3.4-5.0); ALBUMIN/GLOBULIN RATIO 0.3 (1.1-1.5); ALKALINE PHOSPHATASE 830 IU/L (46-116); ANION GAP 13 (8-16); ASPARTATE AMINO TRANSFERASE 915 U/L (10-37); BILIRUBIN,TOTAL 2.6 MG/DL (0.1-1.0); BLOOD UREA NITROGEN 45 MG/DL (7-18); BUN/CREATININE RATIO 7.3 (6.6-38.0); CALCIUM 8.2 MG/DL (8.5-10.1); CHLORIDE 95 MMOL/L (99-107); CREATININE 6.15 MG/DL (0.40-0.90); GLUCOSE 135 MG/DL (70-104); MAGNESIUM 2.5 MG/DL (1.5-2.4); PHOSPHORUS 4.4 MG/DL (2.3-4.5); POTASSIUM 3.8 MMOL/L (3.5-5.1); SODIUM 132 MMOL/L (135-145); TOTAL CARBON DIOXIDE 23.7 MMOL/L (24-32); TOTAL PROTEIN 6.9 G/DL (6.4-8.2); eGFR 7 ML/MIN
--- NOTE | 2018-12-27 06:22 | NUR ---
Problems reprioritized. Patient report given, questions answered & plan of care reviewed with RUTHY Porter. Addendum: 12/27/18 at 0622 by Karly Vizcaino RN Amended: Links added.
[2018-12-27 07:00] VITALS: BP 104/48
--- NOTE | 2018-12-27 07:00 | NUR ---
Patient in room DOM 340. I have received report from Karly and had the opportunity to ask questions and assume patient care. Addendum: 12/27/18 at 0923 by Charlotte Smith RN Amended: Links added.
[2018-12-27 07:08] LABS: ANISOCYTOSIS 3+; LARGE PLATELETS FEW; MICROCYTOSIS 1+; PLATELET ESTIMATE DECREASED
[2018-12-27 07:10] LABS: HYPOCHROMASIA 1+
[2018-12-27] MEDS: NUT.TX.IMP.RENAL FXN,LAC-REDUC (Nepro) 237 ML VANILLA PO SCH ×3 (07:42→17:54)
[2018-12-27] MEDS: docusate sod 100mg capsule PO SCH (07:42)
[2018-12-27] MEDS: calcium acetate 667mg (PhosLO) capsule PO SCH ×3 (07:47→17:47)
[2018-12-27] MEDS: lactobacillus rhamnosus 10,000 MMU CELLS/CAPSULE PO SCH ×2 (07:47→20:04)
[2018-12-27] MEDS: folic acid/vitamin B complex w/vitamin C 0.8mg tablet PO SCH (07:47)
[2018-12-27] MEDS: amLODIPine 5mg tablet PO SCH (07:47)
[2018-12-27] MEDS: piperacillin/tazo 3.375gm/50ml 50 ML IV SCH ×2 (07:50→20:05)
[2018-12-27] MEDS ORDERED: LIDOcaine 1% (10mg/ml) 2ml vial SQ ONE (08:00)
[2018-12-27] MEDS ORDERED: epoetin 20,000 units/ml inj IV ONE (08:00)
[2018-12-27] MEDS ORDERED: heparin 1,000 units/ml 10ml inj IV ONE (08:00)
[2018-12-27] MEDS ORDERED: normal saline 1000ml 250 ML IV PRN (08:00)
[2018-12-27] MEDS: insulin Lispro (HumaLOG) vial - multi-dose SQ SCH ×3 (09:22→21:25)
--- NOTE | 2018-12-27 09:28 | NUR ---
Pt only consumed 20% of breakfast, will hold am insulin.
[2018-12-27 12:06] VITALS: BP 128/56
--- NOTE | 2018-12-27 13:30 | NUR ---
Patient currently getting Dialysis, is NPO.
--- NOTE | 2018-12-27 18:14 | NUR ---
Problems reprioritized. Patient report given, questions answered & plan of care reviewed with Ruth Ann. Addendum: 12/27/18 at 1815 by Charlotte Smith RN Amended: Links added.
--- NOTE | 2018-12-27 18:15 | NUR ---
Received report from Charlotte BLISS, assumed care of patient.
[2018-12-27 20:00] VITALS: BP 108/47
[2018-12-27] MEDS: atorvastatin 20mg tablet PO SCH (20:04)
[2018-12-28] VITALS: BP 111/50
[2018-12-28 05:07] LABS: HEMOGLOBIN 7.9 g/dl (12.0-16.0); MONOCYTES # (AUTO) 1.3 X10'3 (0-0.9)
[2018-12-28 05:11] LABS: BASOPHILS % (AUTO) 0.3 % (0-1); EOSINOPHILS # (AUTO) 0.3 X10'3 (0-0.9); LYMPHOCYTES # (AUTO) 1.1 X10'3 (1.1-4.8); LYMPHOCYTES % (AUTO) 9.7 % (21-51); MEAN CORPUSCULAR HEMOGLOBIN 25.8 PG (27.0-31.0); MEAN PLATELET VOLUME 10.9 FL (7.4-10.4); NEUTROPHILS # (AUTO) 8.8 X10'3 (1.8-7.7); PLATELET COUNT 132 X10'3 (140-440); RED BLOOD COUNT 3.07 X10'6 (4.20-5.60); RED CELL DISTRIBUTION WIDTH 25.9 % (11.5-14.5); WHITE BLOOD COUNT 11.6 X10'3 (4.5-11.0)
--- NOTE | 2018-12-28 06:10 | NUR ---
Patient in room DOM 340. I have received report from CHELSI BLISS and had the opportunity to ask questions and assume patient care.
--- NOTE | 2018-12-28 06:17 | NUR ---
Report given to Thom BLISS.
[2018-12-28 06:31] LABS: ALANINE AMINOTRANSFERASE 459 U/L (12-78); ALBUMIN 1.5 G/DL (3.4-5.0); ALBUMIN/GLOBULIN RATIO 0.3 (1.1-1.5); ALKALINE PHOSPHATASE 790 IU/L (46-116); ANION GAP 8 (8-16); ASPARTATE AMINO TRANSFERASE 957 U/L (10-37); BILIRUBIN,TOTAL 2.4 MG/DL (0.1-1.0); BLOOD UREA NITROGEN 23 MG/DL (7-18); BUN/CREATININE RATIO 6.2 (6.6-38.0); CALCIUM 8.2 MG/DL (8.5-10.1); CHLORIDE 98 MMOL/L (99-107); CREATININE 3.72 MG/DL (0.40-0.90); GLUCOSE 100 MG/DL (70-104); MAGNESIUM 2.1 MG/DL (1.5-2.4); PHOSPHORUS 3.4 MG/DL (2.3-4.5); POTASSIUM 3.7 MMOL/L (3.5-5.1); SODIUM 133 MMOL/L (135-145); TOTAL PROTEIN 7.1 G/DL (6.4-8.2); eGFR 12 ML/MIN
[2018-12-28 06:48] LABS: ANISOCYTOSIS 3+; PLATELET ESTIMATE DECREASED
[2018-12-28 06:49] LABS: HYPOCHROMASIA 1+; MICROCYTOSIS 1+; TARGET CELLS FEW
[2018-12-28 06:50] LABS: LARGE PLATELETS FEW
[2018-12-28 07:00] VITALS: BP 103/45
[2018-12-28] MEDS: amLODIPine 5mg tablet PO SCH (08:00)
[2018-12-28] MEDS: docusate sod 100mg capsule PO SCH (08:02)
[2018-12-28] MEDS: folic acid/vitamin B complex w/vitamin C 0.8mg tablet PO SCH (08:02)
[2018-12-28] MEDS: piperacillin/tazo 3.375gm/50ml 50 ML IV SCH ×2 (08:02→19:02)
[2018-12-28] MEDS: lactobacillus rhamnosus 10,000 MMU CELLS/CAPSULE PO SCH ×2 (08:02→19:02)
[2018-12-28] MEDS: calcium acetate 667mg (PhosLO) capsule PO SCH ×3 (08:02→18:14)
[2018-12-28] MEDS: NUT.TX.IMP.RENAL FXN,LAC-REDUC (Nepro) 237 ML VANILLA PO SCH ×3 (08:12→18:15)
[2018-12-28] MEDS: insulin Lispro (HumaLOG) vial - multi-dose SQ SCH ×3 (08:33→18:18)
[2018-12-28] MEDS ORDERED: SINCALIDE IV ONE (09:35)
[2018-12-28] MEDS ORDERED: NORMAL SALINE IV ONE (09:35)
[2018-12-28 14:00] VITALS: BP 118/47
--- NOTE | 2018-12-28 15:36 | NUR ---
reassessment: Pt PO 50-75% meals w/ 0% ONS breakfast today still meeting needs. LBM 12/26 diarrhea per MD note. Found to have no stones on MRCP and likely f/u as outpatient per MD note. Will continue to monitor. Rec: 1. continue renal diet; soft to chew foods/chopped meats 2. Nepro TIDWM 3. wt w/ HD Addendum: 12/28/18 at [address] Amended: Links added.
--- NOTE | 2018-12-28 17:29 | NUR ---
SPOKE WITH DAUGHTER TO INFORM HER THAT BRENDA PLUMMER MAY WANT TO TRANSFER PATIENT TONIGHT. SHE CAN BE REACHED AT ANYTIME FOR TRANSLATION ON PHONE WITH PATIENT.
[2018-12-28 18:00] VITALS: BP 103/50
--- NOTE | 2018-12-28 18:00 | NUR ---
Patient in room DOM 340. I have received report from ISRAEL BLISS and had the opportunity to ask questions and assume patient care.
--- NOTE | 2018-12-28 18:10 | NUR ---
Patient in room DOM 340. I have received report from Yareli BLISS and had the opportunity to ask questions and assume patient care. Pt sleeping comfortably in bed.
[2018-12-28] MEDS: atorvastatin 20mg tablet PO SCH (20:43)
[2018-12-29] VITALS: BP 116/50
[2018-12-29 05:58] LABS: EOSINOPHILS # (AUTO) 0.4 X10'3 (0-0.9); HEMOGLOBIN 8.1 g/dl (12.0-16.0); RED BLOOD COUNT 3.16 X10'6 (4.20-5.60)
[2018-12-29 05:59] LABS: BASOPHILS % (AUTO) 0.1 % (0-1); EOSINOPHILS % (AUTO) 3.1 % (0-6); HEMATOCRIT 24.5 % (35.0-45.0); LYMPHOCYTES % (AUTO) 8.4 % (21-51); MEAN CORPUSCULAR HEMOGLOBIN 25.7 PG (27.0-31.0); MEAN CORPUSCULAR HGB CONC 33.1 g/dL (33.0-36.5); MEAN CORPUSCULAR VOLUME 77.5 FL (78-98); MONOCYTES # (AUTO) 1.2 X10'3 (0-0.9); MONOCYTES % (AUTO) 9.7 % (2-12); NEUTROPHILS # (AUTO) 9.7 X10'3 (1.8-7.7); NEUTROPHILS % (AUTO) 78.7 % (42-75); PLATELET COUNT 128 X10'3 (140-440); WHITE BLOOD COUNT 12.4 X10'3 (4.5-11.0)
--- NOTE | 2018-12-29 06:30 | NUR ---
Patient in room DOM 340. I have received report from RUTHY Pulido and had the opportunity to ask questions and assume patient care.
--- NOTE | 2018-12-29 06:36 | NUR ---
Problems reprioritized. Patient report given, questions answered & plan of care reviewed with January RN.
--- NOTE | 2018-12-29 06:44 | NUR ---
Per NOC charge entry specialist, [facility] called this morning and stated pt will be going to [facility] on 01/[facility], procedure will be done on 01/02
[2018-12-29 06:57] LABS: ANISOCYTOSIS 3+; HYPOCHROMASIA 1+; LARGE PLATELETS FEW; MICROCYTOSIS 1+; PLATELET ESTIMATE DECREASED; POLYCHROMASIA 1+; ROULEAUX 1+; TARGET CELLS 1+
[2018-12-29 07:01] LABS: ALANINE AMINOTRANSFERASE 462 U/L (12-78); ALBUMIN 1.4 G/DL (3.4-5.0); ALBUMIN/GLOBULIN RATIO 0.2 (1.1-1.5); ALKALINE PHOSPHATASE 813 IU/L (46-116); ANION GAP 11 (8-16); ASPARTATE AMINO TRANSFERASE 981 U/L (10-37); BILIRUBIN,TOTAL 2.4 MG/DL (0.1-1.0); BLOOD UREA NITROGEN 37 MG/DL (7-18); BUN/CREATININE RATIO 6.6 (6.6-38.0); CALCIUM 8.4 MG/DL (8.5-10.1); CHLORIDE 95 MMOL/L (99-107); CREATININE 5.58 MG/DL (0.40-0.90); GLUCOSE 116 MG/DL (70-104); MAGNESIUM 2.2 MG/DL (1.5-2.4); PHOSPHORUS 4.6 MG/DL (2.3-4.5); POTASSIUM 4.2 MMOL/L (3.5-5.1); SODIUM 131 MMOL/L (135-145); TOTAL CARBON DIOXIDE 24.6 MMOL/L (24-32); TOTAL PROTEIN 7.1 G/DL (6.4-8.2); eGFR 8 ML/MIN
[2018-12-29 08:00] VITALS: BP 108/48
[2018-12-29] MEDS ORDERED: LIDOcaine 1% (10mg/ml) 2ml vial SQ ONE (08:00)
[2018-12-29] MEDS ORDERED: heparin 1,000 units/ml 10ml inj IV ONE (08:00)
[2018-12-29] MEDS: amLODIPine 5mg tablet PO SCH (08:00)
[2018-12-29] MEDS ORDERED: normal saline 1000ml 250 ML IV PRN (08:00)
[2018-12-29] MEDS ORDERED: epoetin 20,000 units/ml inj IV ONE (08:00)
[2018-12-29] MEDS: piperacillin/tazo 3.375gm/50ml 50 ML IV SCH ×2 (09:04→19:30)
[2018-12-29] MEDS: lactobacillus rhamnosus 10,000 MMU CELLS/CAPSULE PO SCH ×2 (09:04→19:30)
[2018-12-29] MEDS: docusate sod 100mg capsule PO SCH (09:04)
[2018-12-29] MEDS: calcium acetate 667mg (PhosLO) capsule PO SCH ×3 (09:04→17:54)
[2018-12-29] MEDS: NUT.TX.IMP.RENAL FXN,LAC-REDUC (Nepro) 237 ML VANILLA PO SCH ×3 (09:05→17:54)
[2018-12-29] MEDS: folic acid/vitamin B complex w/vitamin C 0.8mg tablet PO SCH (09:05)
[2018-12-29] MEDS: insulin Lispro (HumaLOG) vial - multi-dose SQ SCH ×3 (09:10→17:00)
[2018-12-29 12:00] VITALS: BP 134/69
[2018-12-29 18:00] VITALS: BP 130/71
--- NOTE | 2018-12-29 18:30 | NUR ---
Patient in room DOM 340. I have received report from January BLISS and had the opportunity to ask questions and assume patient care.
--- NOTE | 2018-12-29 18:42 | NUR ---
Problems reprioritized. Patient report given, questions answered & plan of care reviewed with RUTHY Pulido.
[2018-12-29] MEDS: atorvastatin 20mg tablet PO SCH (21:43)
[2018-12-30] VITALS: BP 83/44
[2018-12-30 02:30] VITALS: BP 103/55
--- NOTE | 2018-12-30 06:24 | NUR ---
Patient in room DOM 340. I have received report from RUTHY Pulido and had the opportunity to ask questions and assume patient care.
--- NOTE | 2018-12-30 06:30 | NUR ---
Problems reprioritized. Patient report given, questions answered & plan of care reviewed with January RN.
[2018-12-30 07:00] VITALS: BP 118/40
[2018-12-30] MEDS: insulin Lispro (HumaLOG) vial - multi-dose SQ SCH ×3 (07:00→18:38)
[2018-12-30] MEDS: docusate sod 100mg capsule PO SCH (08:00)
[2018-12-30] MEDS: calcium acetate 667mg (PhosLO) capsule PO SCH ×3 (08:24→17:16)
[2018-12-30] MEDS: amLODIPine 5mg tablet PO SCH (08:24)
[2018-12-30] MEDS: NUT.TX.IMP.RENAL FXN,LAC-REDUC (Nepro) 237 ML VANILLA PO SCH ×3 (08:24→18:38)
[2018-12-30] MEDS: folic acid/vitamin B complex w/vitamin C 0.8mg tablet PO SCH (08:24)
[2018-12-30] MEDS: lactobacillus rhamnosus 10,000 MMU CELLS/CAPSULE PO SCH ×2 (08:24→19:42)
[2018-12-30] MEDS: piperacillin/tazo 3.375gm/50ml 50 ML IV SCH ×2 (08:26→19:42)
[2018-12-30 11:00] VITALS: BP 110/43
[2018-12-30 13:08] LABS: HBSAG SCREEN Negative (Negative)
--- NOTE | 2018-12-30 17:00 | NUR ---
Patient personal phone is missing. Linens were changed, phone was not found in linens. Pt usually keeps it in her gown pocket. Daughter JESSICA could not be reached. Linen room called. Will continue to look for the phone. Addendum: 12/30/18 at 2120 by Avery Sampson RN Incorrect time. Correct time is 1900
[2018-12-30 18:00] VITALS: BP 115/47
--- NOTE | 2018-12-30 18:26 | NUR ---
Problems reprioritized. Patient report given, questions answered & plan of care reviewed with kirsty Mccall.
--- NOTE | 2018-12-30 18:30 | NUR ---
Patient in room DOM 340. I have received report from January BLISS and had the opportunity to ask questions and assume patient care.
[2018-12-30] MEDS: atorvastatin 20mg tablet PO SCH (21:28)
[2018-12-30 23:00] VITALS: BP 112/46
[2018-12-31 06:30] VITALS: BP 103/40
--- NOTE | 2018-12-31 06:35 | NUR ---
Patient in room DOM 340. I have received report from RUTHY Pulido and had the opportunity to ask questions and assume patient care.
[2018-12-31] MEDS: insulin Lispro (HumaLOG) vial - multi-dose SQ SCH ×3 (07:00→17:00)
--- NOTE | 2018-12-31 07:00 | NUR ---
Problems reprioritized. Patient report given, questions answered & plan of care reviewed with Maddi RN.
[2018-12-31] MEDS: amLODIPine 5mg tablet PO SCH (08:00)
[2018-12-31] MEDS: docusate sod 100mg capsule PO SCH (08:00)
[2018-12-31] MEDS: calcium acetate 667mg (PhosLO) capsule PO SCH ×3 (08:51→18:00)
[2018-12-31] MEDS: piperacillin/tazo 3.375gm/50ml 50 ML IV SCH ×2 (08:51→20:25)
[2018-12-31] MEDS: lactobacillus rhamnosus 10,000 MMU CELLS/CAPSULE PO SCH ×2 (08:51→20:25)
[2018-12-31] MEDS: NUT.TX.IMP.RENAL FXN,LAC-REDUC (Nepro) 237 ML VANILLA PO SCH ×3 (08:59→18:00)
--- NOTE | 2018-12-31 09:27 | NUR ---
Linked med note for amlodipine non-administered. notified of AL=302/40. Ordered to hold amlodipine @ this time.
[2018-12-31] MEDS: folic acid/vitamin B complex w/vitamin C 0.8mg tablet PO SCH (09:38)
[2018-12-31] MEDS ORDERED: heparin 1,000unit/ml 10ml vial 10 ML IV ONE (09:43)
[2018-12-31] MEDS ORDERED: normal saline 1000ml 250 ML IV PRN (09:43)
[2018-12-31] MEDS ORDERED: epoetin 20,000 units/ml inj IV ONE (09:45)
[2018-12-31] MEDS ORDERED: heparin 1,000 units/ml 10ml inj IV ONE (09:45)
[2018-12-31 11:01] LABS: HEMATOCRIT 24.8 % (35.0-45.0); HEMOGLOBIN 8.1 g/dl (12.0-16.0); MEAN CORPUSCULAR HEMOGLOBIN 25.6 PG (27.0-31.0); MEAN CORPUSCULAR HGB CONC 32.7 g/dL (33.0-36.5); MEAN CORPUSCULAR VOLUME 78.2 FL (78-98); MEAN PLATELET VOLUME 10.5 FL (7.4-10.4); RED BLOOD COUNT 3.17 X10'6 (4.20-5.60); RED CELL DISTRIBUTION WIDTH 24.9 % (11.5-14.5); WHITE BLOOD COUNT 11.8 X10'3 (4.5-11.0)
[2018-12-31 11:23] LABS: PLATELET COUNT 43 X10'3 (140-440)
--- NOTE | 2018-12-31 11:24 | NUR ---
Critical Value given to primary RN for PLT 43.
[2018-12-31 11:30] VITALS: BP 112/43
[2018-12-31] MEDS ORDERED: docusate sod 100mg capsule PO PRN (14:10)
[2018-12-31 20:00] VITALS: BP 105/50
[2018-12-31] MEDS: atorvastatin 20mg tablet PO SCH (20:25)
[2019-01-01] VITALS (7 sets, daily range): BP systolic 84–138; BP diastolic 38–47
--- NOTE | 2019-01-01 04:52 | NUR ---
Patient in room DOM 340. I have received report from RUTHY Linda and had the opportunity to ask questions and assume patient care. Addendum: 01/01/19 at 0452 by Karly Vizcaino RN Amended: Links added.
--- NOTE | 2019-01-01 06:20 | NUR ---
Patient in room DOM 340. I have received report from RUTHY Brandt and had the opportunity to ask questions and assume patient care.
--- NOTE | 2019-01-01 06:30 | NUR ---
Problems reprioritized. Patient report given, questions answered & plan of care reviewed with RUTHY Linda. Addendum: 01/01/19 at 0631 by Karly Vizcaino RN Amended: Links added.
[2019-01-01 06:55] LABS: HEMOGLOBIN 7.9 g/dl (12.0-16.0)
[2019-01-01 06:56] LABS: HEMATOCRIT 24.3 % (35.0-45.0); MEAN CORPUSCULAR HEMOGLOBIN 25.6 PG (27.0-31.0); MEAN CORPUSCULAR HGB CONC 32.6 g/dL (33.0-36.5); MEAN CORPUSCULAR VOLUME 78.5 FL (78-98); MEAN PLATELET VOLUME 10.8 FL (7.4-10.4); RED CELL DISTRIBUTION WIDTH 25.1 % (11.5-14.5); WHITE BLOOD COUNT 13.4 X10'3 (4.5-11.0)
[2019-01-01 07:26] LABS: PLATELET COUNT 12 X10'3 (140-440)
[2019-01-01] MEDS ORDERED: LIDOcaine 1% (10mg/ml) 2ml vial SQ ONE (08:00)
[2019-01-01] MEDS ORDERED: amLODIPine 5mg tablet PO SCH (08:00)
[2019-01-01] MEDS: folic acid/vitamin B complex w/vitamin C 0.8mg tablet PO SCH (08:54)
[2019-01-01] MEDS: calcium acetate 667mg (PhosLO) capsule PO SCH ×2 (08:55→13:04)
[2019-01-01] MEDS: lactobacillus rhamnosus 10,000 MMU CELLS/CAPSULE PO SCH (08:55)
[2019-01-01] MEDS: piperacillin/tazo 3.375gm/50ml 50 ML IV SCH (09:13)
[2019-01-01] MEDS: insulin Lispro (HumaLOG) vial - multi-dose SQ SCH ×2 (09:13→12:00)
[2019-01-01] MEDS: NUT.TX.IMP.RENAL FXN,LAC-REDUC (Nepro) 237 ML VANILLA PO SCH ×2 (09:14→12:53)
[2019-01-01 10:13] LABS: ALANINE AMINOTRANSFERASE 399 U/L (12-78); ALBUMIN 1.4 G/DL (3.4-5.0); ALBUMIN/GLOBULIN RATIO 0.2 (1.1-1.5); ALKALINE PHOSPHATASE 819 IU/L (46-116); ANION GAP 10 (8-16); ASPARTATE AMINO TRANSFERASE 818 U/L (10-37); BILIRUBIN,TOTAL 1.6 MG/DL (0.1-1.0); BLOOD UREA NITROGEN 29 MG/DL (7-18); BUN/CREATININE RATIO 7.4 (6.6-38.0); CALCIUM 8.1 MG/DL (8.5-10.1); CHLORIDE 98 MMOL/L (99-107); GLUCOSE 143 MG/DL (70-104); MAGNESIUM 2.1 MG/DL (1.5-2.4); PHOSPHORUS 3.3 MG/DL (2.3-4.5); POTASSIUM 3.5 MMOL/L (3.5-5.1); SODIUM 133 MMOL/L (135-145); TOTAL CARBON DIOXIDE 24.7 MMOL/L (24-32); TOTAL PROTEIN 7.2 G/DL (6.4-8.2); eGFR 11 ML/MIN
[2019-01-01 10:22] LABS: D-DIMER 1.64 MG/L FEU (0-0.50); PARTIAL THROMBOPLASTIN TIME 39 SECONDS (22-32)
[2019-01-01 10:26] LABS: PLATELET COUNT 8 X10'3 (140-440)
[2019-01-01] MEDS ORDERED: apixaban 2.5mg tablet PO SCH (13:20)
[2019-01-01] MEDS ORDERED: NUT.237L66 PO (13:22)
[2019-01-01] MEDS ORDERED: ZOF4I IV (13:22)
[2019-01-01] MEDS ORDERED: LACT1CAP26 PO (13:22)
[2019-01-01] MEDS ORDERED: PIPE2.2535 IV (13:22)
[2019-01-01] MEDS ORDERED: APIX2.5T PO (13:22)
--- NOTE | 2019-01-01 17:25 | NUR ---
Report called to [facility] RN, Mags. [phone] pt DC'd via medical transportation (care flight).
== END 2019-01-01 17:46 | disposition short-term general hospital (02) | DRG 444 ==
LOC: ER 17:11 → SUR 3N 23:39 → CMPBEDREQ 12-18 19:33
PROVIDERS: ADMIT Internal Medicine Critical Care Medicine; ATTEND Internal Medicine Critical Care Medicine
PROC: 5A1D70Z Performance of Urinary Filtration, Intermittent, Less than 6 Hours Per Day (ICD-10-PCS; 2018-12-18)
PROC: 5A1D70Z Performance of Urinary Filtration, Intermittent, Less than 6 Hours Per Day (ICD-10-PCS; 2018-12-20)
PROC: 0F798ZZ Dilation of Common Bile Duct, Via Natural or Artificial Opening Endoscopic (ICD-10-PCS; principal; 2018-12-21)
PROC: BF0C1ZZ Plain Radiography of Hepatobiliary System, All using Low Osmolar Contrast (ICD-10-PCS; 2018-12-21)
PROC: 5A1D70Z Performance of Urinary Filtration, Intermittent, Less than 6 Hours Per Day (ICD-10-PCS; 2018-12-22)
PROC: 5A1D70Z Performance of Urinary Filtration, Intermittent, Less than 6 Hours Per Day (ICD-10-PCS; 2018-12-25)
PROC: 5A1D70Z Performance of Urinary Filtration, Intermittent, Less than 6 Hours Per Day (ICD-10-PCS; 2018-12-27)
PROC: 30233R1 Transfusion of Nonautologous Platelets into Peripheral Vein, Percutaneous Approach (ICD-10-PCS; 2019-01-01)
PROC: 5A1D70Z Performance of Urinary Filtration, Intermittent, Less than 6 Hours Per Day (ICD-10-PCS; 2019-01-01)
DX: K80.61 Calculus of gallbladder and bile duct with cholecystitis, unspecified, with obstruction (principal); N18.6 End stage renal disease; E43 Unspecified severe protein-calorie malnutrition; R18.8 Other ascites; I12.0 Hypertensive chronic kidney disease with stage 5 chronic kidney disease or end stage renal disease; N17.9 Acute kidney failure, unspecified; R62.7 Adult failure to thrive; R19.7 Diarrhea, unspecified; D75.82 Heparin induced thrombocytopenia (HIT); T45.515A Adverse effect of anticoagulants, initial encounter; E11.22 Type 2 diabetes mellitus with diabetic chronic kidney disease; Z79.01 Long term (current) use of anticoagulants; Z79.4 Long term (current) use of insulin; Z99.2 Dependence on renal dialysis; Z79.82 Long term (current) use of aspirin; Z79.899 Other long term (current) drug therapy; Z68.20 Body mass index [BMI] 20.0-20.9, adult
CPT/HCPCS: 36415; 71045; 74176; 74177; 74181; 78226; 80048; 80053; 82103; 82150; 82378; 82550; 82565; 82948; 83036; 83690; 83735; 83880; 84100; 84145; 84484; 84520; 85025; 85027; 85379; 85384; 85610; 85730; 86022; 86301; 86885; 86900; 86901; 87070; 87340; 93005; 97110; 97116; 97162; 97530; 97535; 99152; 99153; 99285; A4620; A9537; C1769; G0257; G0378; J0885; J1200; J1610; J1644; J2250; J2543; J2805; J3010; J3490; J7030; J7040; J7042; P9035; Q9963; Q9967

== ENCOUNTER 2019-01-09 17:09 | Inpatient (IN) | payer MEDICARE, MEDICAID ==
[~2019-01-09] VITALS: Ht 160 cm; Wt 47.6 kg
[~2019-01-09 17:09] MED LIST changes: +APIX2.5T PO; +INSU100V13 SQ; +LACT1CAP26 PO; +NUT.237L66 PO; +ZOF4I IV
--- NOTE | 2019-01-09 19:20 | NUR ---
Received report from Linda BLISS from [facility]. Patient VSS. Patient had a ERCP there with biopsy done and sludged removed. \ CT of head done there negative. Admitting Dx Sclerosing Cholangitis.
--- NOTE | 2019-01-09 22:20 | NUR ---
Patient arrived to the floor via EMS. August notified to admit patient. VSS, call light in reach, will continue with care.
[2019-01-09] MEDS ORDERED: MESSAGE TO PHARMACY PO ONE (23:25)
[2019-01-09] MEDS ORDERED: diphenhydrAMINE 25mg capsule PO PRN (23:25)
[2019-01-09] MEDS ORDERED: dextrose ORAL solution 15 GM/59 ML bottle PO PRN ×2 (23:25)
[2019-01-09] MEDS ORDERED: insulin Lispro (HumaLOG) vial - multi-dose SQ SCH (23:25)
[2019-01-09] MEDS ORDERED: glucagon, human recombinant 1mg kit SUBCUT PRN (23:25)
[2019-01-09] MEDS ORDERED: dextrose 50%-water 50ml dispensing syringe IV PRN ×2 (23:25)
[2019-01-09] MEDS ORDERED: acetaminophen 325mg tablet PO PRN (23:25)
[2019-01-09] MEDS ORDERED: ondansetron/PF 4mg/2ml inj IV PRN (23:25)
--- NOTE | 2019-01-09 23:30 | NUR ---
August WRINGER AND SETTER in to admit patient. BS check 92.
[2019-01-10] VITALS: BP 122/54
--- NOTE | 2019-01-10 04:20 | NUR ---
Patient has not voided since arrival to floor. Bladder scan Patient this morning showed 390 in bladder. August RESTAURANT SERVICE MANAGER notified orders received to straight cath now and PRN Qhr >400ml.
[2019-01-10 04:40] LABS: BASOPHILS % (AUTO) 0.2 % (0-1); EOSINOPHILS # (AUTO) 0.1 X10'3 (0-0.9); EOSINOPHILS % (AUTO) 1.9 % (0-6); HEMATOCRIT 23.5 % (35.0-45.0); HEMOGLOBIN 7.9 g/dl (12.0-16.0); LYMPHOCYTES # (AUTO) 1.8 X10'3 (1.1-4.8); LYMPHOCYTES % (AUTO) 24.2 % (21-51); MEAN CORPUSCULAR HEMOGLOBIN 27.8 PG (27.0-31.0); MEAN CORPUSCULAR HGB CONC 33.4 g/dL (33.0-36.5); MEAN CORPUSCULAR VOLUME 83.2 FL (78-98); MEAN PLATELET VOLUME 9.5 FL (7.4-10.4); MONOCYTES # (AUTO) 1.1 X10'3 (0-0.9); NEUTROPHILS # (AUTO) 4.3 X10'3 (1.8-7.7); NEUTROPHILS % (AUTO) 58.7 % (42-75); PLATELET COUNT 104 X10'3 (140-440); RED BLOOD COUNT 2.82 X10'6 (4.20-5.60); RED CELL DISTRIBUTION WIDTH 34.5 % (11.5-14.5); WHITE BLOOD COUNT 7.3 X10'3 (4.5-11.0)
[2019-01-10 04:47] LABS: PARTIAL THROMBOPLASTIN TIME 33 SECONDS (22-32)
[2019-01-10 04:57] LABS: ALANINE AMINOTRANSFERASE 173 U/L (12-78); ALBUMIN 1.6 G/DL (3.4-5.0); ALBUMIN/GLOBULIN RATIO 0.3 (1.1-1.5); ALKALINE PHOSPHATASE 664 IU/L (46-116); ANION GAP 9 (8-16); ASPARTATE AMINO TRANSFERASE 240 U/L (10-37); BILIRUBIN,TOTAL 1.6 MG/DL (0.1-1.0); BLOOD UREA NITROGEN 26 MG/DL (7-18); BUN/CREATININE RATIO 5.7 (6.6-38.0); CALCIUM 8.2 MG/DL (8.5-10.1); CHLORIDE 99 MMOL/L (99-107); CREATININE 4.59 MG/DL (0.40-0.90); GLUCOSE 138 MG/DL (70-104); MAGNESIUM 2.4 MG/DL (1.5-2.4); PHOSPHORUS 4.4 MG/DL (2.3-4.5); POTASSIUM 4.5 MMOL/L (3.5-5.1); SODIUM 135 MMOL/L (135-145); TOTAL CARBON DIOXIDE 26.6 MMOL/L (24-32); TOTAL PROTEIN 7.3 G/DL (6.4-8.2); eGFR 9 ML/MIN
--- NOTE | 2019-01-10 06:30 | NUR ---
Problems reprioritized. Patient report given, questions answered & plan of care reviewed with [].
--- NOTE | 2019-01-10 06:47 | NUR ---
Patient in room DOM 341. I have received report from RUTHY Shaffer and had the opportunity to ask questions and assume patient care.
[2019-01-10 07:04] VITALS: BP 127/57
[2019-01-10] MEDS ORDERED: EPOE10003 (07:28)
[2019-01-10] MEDS ORDERED: CALC0.253 PO (07:28)
[2019-01-10] MEDS ORDERED: AMLO-314 PO (07:28)
[2019-01-10] MEDS ORDERED: ERGO500014 PO (07:28)
[2019-01-10] MEDS ORDERED: LOPE2CAP PO (07:28)
[2019-01-10] MEDS ORDERED: URSO300C2 (07:28)
[2019-01-10] MEDS: Ursodiol 300mg capsule PO SCH ×2 (08:29→19:41)
[2019-01-10] MEDS: folic acid/vitamin B complex w/vitamin C 0.8mg tablet PO SCH (08:29)
[2019-01-10] MEDS: calcium acetate 667mg (PhosLO) capsule PO SCH ×3 (08:30→17:38)
[2019-01-10] MEDS: amLODIPine 5mg tablet PO SCH (08:30)
[2019-01-10] MEDS: calcitriol 0.25mcg capsule PO SCH (08:30)
[2019-01-10] MEDS: aspirin 81mg tablet.DR PO SCH (08:30)
[2019-01-10 08:52] LABS: ANISOCYTOSIS 3+; PLATELET ESTIMATE DECREASED; TOTAL CELLS COUNTED 100
[2019-01-10 11:00] VITALS: BP 111/44
--- NOTE | 2019-01-10 15:04 | NUR ---
Malnutrition/DM Consults: Pt A1C 5.1 <7 and not appropriate for DM ed. Pt admit w/ FTT and ESRD on HD. Pt eating well prior admit 1 week prior. PO 100% carb controlled/renal meals meeting needs. Pt has normal strength and no edema/wounds noted. No significant wt loss hx since prior recent admit. At this time pt does not qualify for malnutrition and meeting needs w/ current PO. MD ordered ONS but no med order or specific ONS recs in EMR. On prior admit pt daughter who is caregiver reported ensures make pt nauseous and given pt admit DX hx sclerosing cholangitis w/ bilirubin 1.6 Nepro would likely exacerbate symptoms. RD d/w RN for ONS d/c per MD approval given pt good PO hx. Will continue to monitor. Addendum: 01/10/19 at [address] Amended: Links added.
--- NOTE | 2019-01-10 15:54 | NUR ---
Pt bladder scanned, 256cc's found. Will continue to toilet frequently and monitor.
--- NOTE | 2019-01-10 18:48 | NUR ---
Problems reprioritized. Patient report given, questions answered & plan of care reviewed with RUTHY Shaffer.
[2019-01-10 20:00] VITALS: BP 118/51
[2019-01-10] MEDS ORDERED: atorvastatin 20mg tablet PO SCH (20:00)
[2019-01-10] MEDS: insulin glargine (Lantus) pen - multi-dose SQ SCH (21:00)
[2019-01-11] VITALS: BP 122/55
[2019-01-11] MEDS ORDERED: mineral oil/petrolatum ophthal oint EACHEYE SCH (02:00)
[2019-01-11 04:50] LABS: BASOPHILS % (AUTO) 0.2 % (0-1); EOSINOPHILS # (AUTO) 0.2 X10'3 (0-0.9); EOSINOPHILS % (AUTO) 2.4 % (0-6); HEMATOCRIT 24.5 % (35.0-45.0); HEMOGLOBIN 8.1 g/dl (12.0-16.0); LYMPHOCYTES % (AUTO) 27.7 % (21-51); MEAN PLATELET VOLUME 9.7 FL (7.4-10.4); MONOCYTES % (AUTO) 13.8 % (2-12); NEUTROPHILS # (AUTO) 3.9 X10'3 (1.8-7.7); NEUTROPHILS % (AUTO) 55.9 % (42-75); PLATELET COUNT 107 X10'3 (140-440); RED BLOOD COUNT 2.89 X10'6 (4.20-5.60); RED CELL DISTRIBUTION WIDTH 34.8 % (11.5-14.5)
[2019-01-11 04:55] LABS: ALANINE AMINOTRANSFERASE 157 U/L (12-78); ALBUMIN 1.6 G/DL (3.4-5.0); ALBUMIN/GLOBULIN RATIO 0.3 (1.1-1.5); ALKALINE PHOSPHATASE 623 IU/L (46-116); ANION GAP 9 (8-16); ASPARTATE AMINO TRANSFERASE 214 U/L (10-37); BILIRUBIN,TOTAL 1.9 MG/DL (0.1-1.0); BLOOD UREA NITROGEN 34 MG/DL (7-18); BUN/CREATININE RATIO 6.2 (6.6-38.0); CALCIUM 8.5 MG/DL (8.5-10.1); CHLORIDE 99 MMOL/L (99-107); GLUCOSE 82 MG/DL (70-104); MAGNESIUM 2.6 MG/DL (1.5-2.4); PARTIAL THROMBOPLASTIN TIME 32 SECONDS (22-32); PHOSPHORUS 5.5 MG/DL (2.3-4.5); POTASSIUM 4.6 MMOL/L (3.5-5.1); SODIUM 134 MMOL/L (135-145); TOTAL CARBON DIOXIDE 26.4 MMOL/L (24-32); TOTAL PROTEIN 7.2 G/DL (6.4-8.2); eGFR 8 ML/MIN
--- NOTE | 2019-01-11 06:30 | NUR ---
Patient in room DOM 341. I have received report from RUTHY Shaffer and had the opportunity to ask questions and assume patient care.
[2019-01-11 07:26] VITALS: BP 125/53
[2019-01-11 07:34] LABS: PLATELET ESTIMATE DECREASED
[2019-01-11 07:36] LABS: ANISOCYTOSIS 3+; POLYCHROMASIA 1+
[2019-01-11 07:37] LABS: HYPOCHROMASIA 2+; TARGET CELLS 2+
[2019-01-11] MEDS: amLODIPine 5mg tablet PO SCH (08:00)
[2019-01-11] MEDS: calcitriol 0.25mcg capsule PO SCH (08:14)
[2019-01-11] MEDS: Ursodiol 300mg capsule PO SCH ×2 (08:14→19:50)
[2019-01-11] MEDS: aspirin 81mg tablet.DR PO SCH (08:14)
[2019-01-11] MEDS: folic acid/vitamin B complex w/vitamin C 0.8mg tablet PO SCH (08:15)
[2019-01-11] MEDS: calcium acetate 667mg (PhosLO) capsule PO SCH ×3 (08:16→19:50)
[2019-01-11] MEDS ORDERED: normal saline 1000ml 100 ML IV PRN (08:36)
[2019-01-11] MEDS ORDERED: LIDOcaine 1% (10mg/ml) 2ml vial SQ ONE (08:40)
[2019-01-11] MEDS ORDERED: epoetin 20,000 units/ml inj IV ONE (08:40)
[2019-01-11 11:30] VITALS: BP 132/55
--- NOTE | 2019-01-11 15:41 | NUR ---
Patient is not to go home until she has had dialysis. I spoke with Dr. Kim because the Discharge Routine came up and wanted to confirm that he didn't want her to go home today. He just wanted people to get her discharge going for when she does go home.
--- NOTE | 2019-01-11 18:15 | NUR ---
Problems reprioritized. Patient report given, questions answered & plan of care reviewed with RUTHY Machado.
--- NOTE | 2019-01-11 18:30 | NUR ---
Patient in room DOM 341. I have received report from JEREMIAH BLISS and had the opportunity to ask questions and assume patient care.
[2019-01-11 20:00] VITALS: BP 129/58
[2019-01-11] MEDS: insulin glargine (Lantus) pen - multi-dose SQ SCH (21:00)
[2019-01-12] VITALS: BP 114/52
--- NOTE | 2019-01-12 05:26 | NUR ---
BLADDER SCAN 420ML STRAIGHT CATH DONE ASEPTICALLY AND OBTAINED 500 ML OF CLOUDY URINE WITH SEDIMENTS.
[2019-01-12 05:38] LABS: BASOPHILS % (AUTO) 0.5 % (0-1); EOSINOPHILS # (AUTO) 0.1 X10'3 (0-0.9); EOSINOPHILS % (AUTO) 2.4 % (0-6); HEMATOCRIT 24.1 % (35.0-45.0); LYMPHOCYTES # (AUTO) 1.5 X10'3 (1.1-4.8); LYMPHOCYTES % (AUTO) 25.1 % (21-51); MEAN CORPUSCULAR HEMOGLOBIN 28.4 PG (27.0-31.0); MEAN CORPUSCULAR HGB CONC 33.1 g/dL (33.0-36.5); MEAN CORPUSCULAR VOLUME 85.7 FL (78-98); MEAN PLATELET VOLUME 9.9 FL (7.4-10.4); MONOCYTES # (AUTO) 0.7 X10'3 (0-0.9); NEUTROPHILS # (AUTO) 3.5 X10'3 (1.8-7.7); PLATELET COUNT 115 X10'3 (140-440); RED BLOOD COUNT 2.81 X10'6 (4.20-5.60); RED CELL DISTRIBUTION WIDTH 34.6 % (11.5-14.5); WHITE BLOOD COUNT 5.9 X10'3 (4.5-11.0)
[2019-01-12 06:06] LABS: ALANINE AMINOTRANSFERASE 134 U/L (12-78); ALBUMIN 1.6 G/DL (3.4-5.0); ALBUMIN/GLOBULIN RATIO 0.3 (1.1-1.5); ALKALINE PHOSPHATASE 565 IU/L (46-116); ANION GAP 7 (8-16); ASPARTATE AMINO TRANSFERASE 192 U/L (10-37); BILIRUBIN,TOTAL 1.9 MG/DL (0.1-1.0); BLOOD UREA NITROGEN 15 MG/DL (7-18); BUN/CREATININE RATIO 4.4 (6.6-38.0); CALCIUM 8.3 MG/DL (8.5-10.1); CHLORIDE 99 MMOL/L (99-107); CREATININE 3.39 MG/DL (0.40-0.90); GLUCOSE 94 MG/DL (70-104); MAGNESIUM 2.1 MG/DL (1.5-2.4); PHOSPHORUS 3.4 MG/DL (2.3-4.5); POTASSIUM 3.8 MMOL/L (3.5-5.1); SODIUM 134 MMOL/L (135-145); TOTAL CARBON DIOXIDE 28.1 MMOL/L (24-32); TOTAL PROTEIN 7.1 G/DL (6.4-8.2); eGFR 13 ML/MIN
--- NOTE | 2019-01-12 06:10 | NUR ---
Problems reprioritized. Patient report given, questions answered & plan of care reviewed with JEREMIAH BLISS.
--- NOTE | 2019-01-12 06:15 | NUR ---
Patient in room DOM 341. I have received report from RUTHY Machado and had the opportunity to ask questions and assume patient care.
[2019-01-12 06:54] LABS: PARTIAL THROMBOPLASTIN TIME 32 SECONDS (22-32)
[2019-01-12 07:14] LABS: PLATELET ESTIMATE DECREASED
[2019-01-12 07:15] LABS: ANISOCYTOSIS 3+; HYPOCHROMASIA 2+; POLYCHROMASIA 2+; TARGET CELLS 2+
[2019-01-12 07:21] VITALS: BP 123/48
[2019-01-12] MEDS: Ursodiol 300mg capsule PO SCH (08:07)
[2019-01-12] MEDS: calcitriol 0.25mcg capsule PO SCH (08:07)
[2019-01-12] MEDS: amLODIPine 5mg tablet PO SCH (08:08)
[2019-01-12] MEDS: aspirin 81mg tablet.DR PO SCH (08:08)
[2019-01-12] MEDS: folic acid/vitamin B complex w/vitamin C 0.8mg tablet PO SCH (08:08)
[2019-01-12] MEDS: calcium acetate 667mg (PhosLO) capsule PO SCH ×3 (08:08→18:00)
[2019-01-12 11:34] VITALS: BP 126/55
[2019-01-12] MEDS ORDERED: CALC0.2511 PO (17:58)
[2019-01-12] MEDS ORDERED: NUT.237L66 PO (17:58)
[2019-01-12] MEDS ORDERED: URSO300C2 PO (17:58)
[2019-01-12] MEDS ORDERED: APIX2.5T PO (17:58)
[2019-01-12] MEDS ORDERED: LOPE2CAP PO (17:58)
[2019-01-12] MEDS ORDERED: LACT1CAP26 PO (17:58)
[2019-01-12] MEDS ORDERED: ERGO500014 PO (17:58)
--- NOTE | 2019-01-12 18:43 | NUR ---
Patient has not been discharged yet because her discharge medications were very wrong. Her med-rec was entered incorrectly so she was missing half of her medications that were ordered from [facility]. I have had to call Dr. Kim multiple times regarding all of the mistakes with her medications. Long story short; all of her medications got "continued" like home meds that she already had. When in fact, they were new orders from [facility] that never got filled because she was transferred and not sent home. They got entered has home medications that she was already taking; when she had never taken them before this visit. I was about to send the patient home when the daughter asks me how she is going to pee at home. I gave her a confused expression because I was told that the daughter straight catheterizes her once a day because she can't void. The daughter doesn't know how to straight-cath and has never done it and has no supplies to do it even if we taught her. It is ridiculous how much misinformation has been passed along on this patient. I called Dr. Kim again and got a Melgoza order so the patient doesn't go home with a full bladder. The charge nurse tomorrow will contact case management regarding home health to follow up and help with the Melgoza. Mango nurse; Jeannette will be placing the Melgoza and sending her home as soon as possible.
--- NOTE | 2019-01-12 19:06 | NUR ---
Patients' daughter also filled out a request form for Dr. Livingston's office because she needs to follow up for the endometrial mass. The information was faxed and the office should get back to them. I also gave her Dr. Livingston's office number just in case they don't hear from them next week; her daughter said that she would call if she doesn't hear from them. PIV was removed: cath tip intact.
--- NOTE | 2019-01-12 19:10 | NUR ---
Patient in room DOM 341. I have received report from JEREMIAH BLISS and had the opportunity to ask questions and assume patient care. PATIENT READY FOR DISCHARGE AFTER INSERTING A SUMMERS.
--- NOTE | 2019-01-12 19:30 | NUR ---
SUMMERS CATH INSERTED ASEPTICALLY CONNECTED TO A DRAINAGE BAG. DAUGHTER WAS GIVEN INSTRUCTIONS ON HOW TO EMPTY THE DRAINAGE BAG. PATIENT WILL BE WITH HOME HEALTH.
--- NOTE | 2019-01-12 20:00 | NUR ---
PATIENT LEFT WITH DAUGHTER FOR DISCHARGE HOME IN A WHEELCHAIR WITH STAFF TO THE FRONT DOOR.
== END 2019-01-12 19:59 | disposition home health service (06) | DRG 444 ==
LOC: SUR 3N 22:44
PROVIDERS: ADMIT Internal Medicine Critical Care Medicine; ATTEND Internal Medicine Critical Care Medicine
PROC: 5A1D70Z Performance of Urinary Filtration, Intermittent, Less than 6 Hours Per Day (ICD-10-PCS; principal; 2019-01-11)
DX: K83.01 Primary sclerosing cholangitis (principal); N18.6 End stage renal disease; K83.1 Obstruction of bile duct; I12.0 Hypertensive chronic kidney disease with stage 5 chronic kidney disease or end stage renal disease; Z68.1 Body mass index [BMI] 19.9 or less, adult; E46 Unspecified protein-calorie malnutrition; E11.22 Type 2 diabetes mellitus with diabetic chronic kidney disease; D69.6 Thrombocytopenia, unspecified; Z99.2 Dependence on renal dialysis; Z79.899 Other long term (current) drug therapy; Z79.4 Long term (current) use of insulin; Z79.82 Long term (current) use of aspirin
CPT/HCPCS: 36415; 80053; 82948; 83036; 83735; 84100; 85025; 85610; 85730; 86885; 86900; 86901; 87070; 97110; 97116; 97161; 97530; G0257; G0378; J0885; J1815; J3490